=== PATIENT | female | born 1995 | race Hispanic/Latino ===

== ENCOUNTER 2024-09-15 18:00 | Inpatient (IN) | payer MEDICAID, OTHER ==
[~2024-09-15 18:00] MED LIST: Bupivacaine 0.25% HCL 30 ML VIAL ONE; ePHEDrine Sulfate 50 MG/10 ML VIAL ONE
[2024-09-15 21:09] VITALS: BMI 36.1
[2024-09-15] MEDS ORDERED: hydrALAZINE 20 MG/ML VIAL SLOW IVP PRN (22:08)
[2024-09-15] MEDS ORDERED: Carboprost 250 MCG/ML AMP IM PRN (22:08)
[2024-09-15] MEDS ORDERED: fentaNYL 50 mcg/mL 1 mL Vial SLOW IVP PRN (22:08)
[2024-09-15] MEDS ORDERED: HYDROcodone/Acetaminophen 5/325 mg Tablet PO PRN (22:08)
[2024-09-15] MEDS ORDERED: Methylergonovine 0.2 MG/ML VIAL IM PRN (22:08)
[2024-09-15] MEDS ORDERED: Ondansetron PF 4 MG/2 ML Vial IVP PRN (22:08)
[2024-09-15] MEDS ORDERED: Diphenoxylate HCl/Atropine Tablet PO PRN (22:08)
[2024-09-15] MEDS ORDERED: Promethazine HCl 25 MG/ML VIAL IM PRN (22:08)
[2024-09-15] MEDS ORDERED: Zolpidem Tartrate 5 MG TAB PO PRN (22:08)
[2024-09-15] MEDS ORDERED: Ibuprofen 800 MG TAB PO PRN (22:08)
[2024-09-15] MEDS ORDERED: Lidocaine 1% (PF) 30 ML VIAL SC PRN (22:08)
[2024-09-15] MEDS ORDERED: Misoprostol 200 MCG TAB PR PRN (22:08)
[2024-09-15] MEDS ORDERED: Acetaminophen 500 MG TAB PO PRN (22:08)
[2024-09-15 22:15] LABS: Glucose 77 mg/dL (70-105)
[2024-09-15] MEDS: Lactated Ringer's 1,000 ML IV SCH (22:15)
[2024-09-15 22:19] LABS: Hematocrit 35.5 % (34.9-44.5); Hemoglobin 12.1 g/dL (12.0-15.5); Mean Corpuscular HGB CONC 34.1 g/dL (32.0-36.0); Mean Corpuscular Hemoglobin 31.3 pg (27.0-33.0); Mean Platelet Volume 12.4 fL (7.4-10.4); Platelet Count 148 10x3/uL (150-450); RBC Distribution Width 12.6 % (11.5-14.5); Red Blood Cell (RBC) Count 3.86 10x6/uL (3.90-5.03); White Blood Cell (WBC) Count 6.23 10x3/uL (3.5-10.5)
[2024-09-15] MEDS: Misoprostol 100 MCG TAB VAG SCH (22:30)
[2024-09-15 22:38] LABS: ALT (SGPT) 10 U/L (8-55); AST (SGOT) 19 U/L (5-34); Albumin 2.7 g/dL (3.5-5.0); Alkaline Phosphatase 152 U/L (40-110); Anion Gap 13 mmol/L (10-20); BUN (Urea Nitrogen) 15 mg/dL (7.0-18.7); Bilirubin, Total 0.3 mg/dL (0.2-1.2); Calc. Creatinine Clearance 154 mL/min (70-130); Calcium 8.9 mg/dL (7.8-10.44); Carbon Dioxide 18 mmol/L (22-29); Chloride 111 mmol/L (98-107); Estimated GFR 104; Globulin 2.8 g/dL (2.4-3.5); Glucose 78 mg/dL (70-105); Potassium 4.1 mmol/L (3.5-5.1); Protein, Total 5.5 g/dL (6.0-8.3); Sodium 138 mmol/L (136-145)
[2024-09-15 22:57] LABS: HBsAg Index 0.26 S/CO (0-0.99); Hep B Surf Ag - L&D Non-Reactive S/CO (NonReactive)
[2024-09-15 22:59] LABS: Syphilis Antibody Nonreactive (Nonreactive); Syphilis Antibody Index 0.02 S/CO (<1.00 Non-Reactive)
[2024-09-16] MEDS: fentaNYL/Ropivacaine Epidural 100 ML ONE (09:15)
[2024-09-16] MEDS ORDERED: ePHEDrine Sulfate 50 MG/10 ML VIAL SLOW IVP PRN (10:10)
[2024-09-16] MEDS ORDERED: Lactated Ringer's 500 ML IV PRN (10:10)
[2024-09-16] MEDS ORDERED: Promethazine HCl 25 MG/ML VIAL IM PRN (10:10)
[2024-09-16] MEDS ORDERED: Naloxone HCl 0.4 mg/ml Vial IVP PRN ×2 (10:10)
[2024-09-16] MEDS ORDERED: Acetaminophen 325 MG TAB PO PRN (10:10)
[2024-09-16] MEDS ORDERED: diphenhydrAMINE 50 MG/ML VIAL IVP PRN (10:10)
[2024-09-16] MEDS ORDERED: Moisturizing Cream (Eucerin) 113 GM JAR TOP PRN (10:10)
[2024-09-16] MEDS ORDERED: Ondansetron PF 4 MG/2 ML Vial IVP PRN ×2 (10:10→16:10)
[2024-09-16 10:15] LABS: ALT (SGPT) 7 U/L (8-55); AST (SGOT) 21 U/L (5-34); Albumin 2.6 g/dL (3.5-5.0); Alkaline Phosphatase 164 U/L (40-110); Anion Gap 14 mmol/L (10-20); BUN (Urea Nitrogen) 12 mg/dL (7.0-18.7); Bilirubin, Total 0.4 mg/dL (0.2-1.2); Calc. Creatinine Clearance 167 mL/min (70-130); Calcium 8.7 mg/dL (7.8-10.44); Carbon Dioxide 18 mmol/L (22-29); Chloride 108 mmol/L (98-107); Estimated GFR 114; Globulin 3.1 g/dL (2.4-3.5); Glucose 86 mg/dL (70-105); Potassium 3.8 mmol/L (3.5-5.1); Protein, Total 5.7 g/dL (6.0-8.3); Sodium 136 mmol/L (136-145)
[2024-09-16] MEDS ORDERED: Communication Order-Pharmacy FS SCH (10:15)
[2024-09-16] MEDS ORDERED: fentaNYL 2 mcg/Ropivacaine 0.2% Epidural 100 ML CADD EPIDURAL SCH (10:15)
[2024-09-16 10:16] LABS: INR-International Normal Ratio 0.9; PTT 28.1 sec (22.0-33.0); Prothrombin Time 9.9 sec (9.5-12.1)
[2024-09-16 10:29] LABS: #Basophils Less than 0.03 10x3/uL (0.0-0.2); #Eosinophils 0.03 10x3/uL (0.0-0.5); #Neutrophils 6.93 10x3/uL (1.5-8.4); %Basophils 0.1 % (0.0-2.0); %Eosinophils 0.3 % (0.0-6.0); %Lymphocytes 12.9 % (18.0-47.0); %Monocytes 6.9 % (0.0-10.0); %Neutrophils 79.5 % (40.0-75.0); Hematocrit 38.1 % (34.9-44.5); Hemoglobin 12.3 g/dL (12.0-15.5); Mean Corpuscular HGB CONC 32.3 g/dL (32.0-36.0); Mean Corpuscular Hemoglobin 29.6 pg (27.0-33.0); Mean Corpuscular Volume 91.8 fL (81.6-98.3); RBC Distribution Width 12.5 % (11.5-14.5); Red Blood Cell (RBC) Count 4.15 10x6/uL (3.90-5.03); White Blood Cell (WBC) Count 8.73 10x3/uL (3.5-10.5)
[2024-09-16] MEDS: Oxytocin 30 units/NS 500 ML 500 ML IV SCH ×2 (10:32→15:00)
[2024-09-16 10:33] LABS: Mean Platelet Volume 12.1 fL (7.4-10.4); Platelet Count 145 10x3/uL (150-450)
[2024-09-16] MEDS: Tranexamic Acid 1,000 MG/10 ML VIAL ONE ×2 (14:36→16:10)
[2024-09-16] MEDS: CEFAZOLIN 2 GM VIAL ONE (16:09)
[2024-09-16] MEDS: Azithromycin 500 MG VIAL ONE (16:09)
[2024-09-16] MEDS: Carboprost 250 MCG/ML AMP ONE (16:09)
[2024-09-16] MEDS ORDERED: Milk Of Magnesia 30 ML UDCUP PO PRN (16:10)
[2024-09-16] MEDS ORDERED: Bisacodyl 10 MG SUPP PR PRN (16:10)
[2024-09-16] MEDS ORDERED: Preparation H Ointment 28 GM TUBE PR PRN (16:10)
[2024-09-16] MEDS ORDERED: Lanolin Ointment 7 GM TUBE TOP PRN (16:10)
[2024-09-16] MEDS ORDERED: Benzocaine-Menthol 82.5 ML CAN TOP PRN (16:10)
[2024-09-16] MEDS ORDERED: diphenhydrAMINE 25 MG CAP PO PRN (16:10)
[2024-09-16] MEDS ORDERED: hydrALAZINE 20 MG/ML VIAL SLOW IVP PRN (16:10)
[2024-09-16] MEDS: HYDROcodone/Acetaminophen 5/325 mg Tablet PO PRN (18:12)
[2024-09-16] MEDS: Ferrous Sulfate 325 MG TAB PO SCH (18:33)
[2024-09-16] MEDS: Ibuprofen 800 MG TAB PO SCH (21:59)
[2024-09-16] MEDS: Docusate 100 MG CAP PO SCH (21:59)
[2024-09-17] MEDS: Prenatal Vitamin 1 TAB PO SCH (08:44)
[2024-09-17] MEDS: Boostrix 0.5 ML (Tdap) VIAL (>/=7 yrs of age) IM ONE (08:52)
[2024-09-18 19:13] VITALS: BP 131/82; TEMP 97.9
== END 2024-09-18 19:10 | disposition home or self-care (01) | DRG 807 ==
LOC: CSHLD 20:15 → CSHPP 09-16 17:20
PROVIDERS: ADMIT Student in an Organized Health Care Education/Training Program; ATTEND Student in an Organized Health Care Education/Training Program
PROC: 10E0XZZ Delivery of Products of Conception, External Approach (ICD-10-PCS; principal; 2024-09-16)
PROC: 0KQM0ZZ Repair Perineum Muscle, Open Approach (ICD-10-PCS; 2024-09-16)
PROC: 3E0S3BZ Introduction of Anesthetic Agent into Epidural Space, Percutaneous Approach (ICD-10-PCS; 2024-09-16)
DX: O24.429 Gestational diabetes mellitus in childbirth, unspecified control (principal); Z37.0 Single live birth; Z3A.39 39 weeks gestation of pregnancy; O66.0 Obstructed labor due to shoulder dystocia; O70.1 Second degree perineal laceration during delivery
CPT/HCPCS: 36415; 36416; 51702; 80053; 82947; 85025; 85027; 85384; 85610; 85730; 86780; 86850; 86900; 86901; 87340; J0665; J2590; J7120